=== PATIENT | male | born 1990 | race Caucasian/White ===

== ENCOUNTER 2018-05-31 14:31 | Emergency (ER) | payer SELFPAY ==
[~2018-05-31] VITALS: Ht 175.3 cm; Wt 81.8 kg
[~2018-05-31 14:31] MED LIST: ALAVERT10 MG OR; AMOXICILLIN500 MG OR; AMOXICILLIN500 MG PO; CIPROFLOXACN500 MG PO; FLEXERIL OR; LORTAB 5 OR; LUBRICANT EYE D0.5 % OU; MEDDOSEPAK OR; NAPROSYN500 MG OR; NAPROSYN500 MG PO; NO HOME MEDS; PENICILLN VK500 MG PO; ULTRAM50 M1 OR; ULTRAM50 M1 PO; ULTRAM50 MG OR; ULTRAM50 MG PO; ZOFRAN ODT8 MG PO; ZOFRAN4 MG/TAB PO
[2018-05-31 15:33] LABS: IMMATURE GRANULOCYTES 0.3 % (0.0-5.0); MEAN CELL VOLUME 85.6 fL CALC (80.0-100.0); MEAN CORPUSCULAR HGB 30.7 pG CALC (26.0-32.0); MEAN CORPUSCULAR HGB CONC 35.8 g/L CALC (32.0-36.0); NEUT# 8.74 thou/uL (1.82-7.42); RED BLOOD COUNT 6.26 mill/uL (4.70-6.10); RED CELL DISTRI WIDTH 12.6 % (11.5-15.5)
[2018-05-31 15:36] LABS: HEMATOCRIT 53.6 % (39.0-50.0); HEMOGLOBIN 19.2 g/dl (14.0-18.0)
[2018-05-31 15:45] LABS: ALBUMIN 5.8 g/dL (3.2-5.0); BILIRUBIN, TOTAL 1.5 mg/dL (0.0-1.4); CREATININE 2.5 mg/dL (0.7-1.3); POTASSIUM 3.8 mmol/l (3.5-5.1); TOTAL PROTEIN 10.4 g/dL (6.3-8.2)
[2018-05-31 17:25] VITALS: BP 130/93
== END 2018-05-31 17:25 | disposition left against medical advice (07) | DRG 699 ==
LOC: ED 14:31 → ED-I 16:23 → ED 16:32 → MS2 16:33
PROVIDERS: Family Medicine
DX: N28.9 Disorder of kidney and ureter, unspecified (principal); M62.82 Rhabdomyolysis; E86.0 Dehydration; F17.210 Nicotine dependence, cigarettes, uncomplicated; Z91.19 Patient's noncompliance with other medical treatment and regimen; D72.829 Elevated white blood cell count, unspecified

== ENCOUNTER 2018-05-31 20:50 | Emergency (ER) | payer SELFPAY ==
[~2018-05-31] VITALS: Ht 175.3 cm; Wt 84.1 kg
[2018-05-31 21:37] LABS: HEMATOCRIT 47.8 % (39.0-50.0); IMMATURE GRANULOCYTES 0.1 % (0.0-5.0); MEAN CELL VOLUME 88.2 fL CALC (80.0-100.0); MEAN CORPUSCULAR HGB 30.8 pG CALC (26.0-32.0); MEAN CORPUSCULAR HGB CONC 34.9 g/L CALC (32.0-36.0); NEUT# 5.51 thou/uL (1.82-7.42); RED BLOOD COUNT 5.42 mill/uL (4.70-6.10); RED CELL DISTRI WIDTH 12.7 % (11.5-15.5)
[2018-05-31 21:38] LABS: HEMOGLOBIN 16.7 g/dl (14.0-18.0)
[2018-05-31 21:38] LABS: URINE BILIRUBIN - DIPSTICK NEGATIVE (NEGATIVE); URINE BLOOD DIPSTICK NEGATIVE (NEGATIVE); URINE COLOR YELLOW; URINE GLUCOSE - DIPSTICK NEGATIVE (NEGATIVE); URINE KETONE NEGATIVE (NEGATIVE); URINE LEUK ESTERASE NEGATIVE (NEGATIVE); URINE NITRITE - DIPSTICK NEGATIVE (Negative); URINE PH 5.5 (4.5-8.0); URINE PROTEIN - DIPSTICK 30 mg/dL (NEG-TRACE); URINE SPECIFIC GRAVITY >=1.030; URINE UROBILINOGEN - DIPSTICK 0.2 E.U./dL (0.2)
[2018-05-31 21:39] LABS: URINE CLARITY HAZY
[2018-05-31 21:48] LABS: URINE AMORPH SEDIMENT FEW hpf (NONE-FER); URINE HYALINE CAST FEW lpf (NONE-RARE); URINE MUCUS FEW hpf (NONE-FEW)
[2018-05-31 21:57] LABS: ALBUMIN 4.9 g/dL (3.2-5.0); ALKALINE PHOSPHATASE 49 u/l (38-126); BILIRUBIN, TOTAL 1.1 mg/dL (0.0-1.4); BUN 28 mg/dL (9-20); BUN/CREATININE RATIO 17 (12-20 (CALC)); CHLORIDE 106 mmol/l (95-108); CPK 510 u/l (52-200); CREATININE 1.6 mg/dL (0.7-1.3); GFR 52 ML/MIN (>=60 (CALC)); GFR FOR AFR.AMER. > 60 ML/MIN (>=60 (CALC)); POTASSIUM 3.8 mmol/l (3.5-5.1); SGOT/AST 21 u/l (17-59); SGPT/ALT 30 u/l (21-72); SODIUM 143 mmol/l (137-146)
[2018-05-31 21:58] LABS: ANION GAP 17 (6-22 (CALC)); CARBON DIOXIDE 24 mmol/l (22-30); TOTAL PROTEIN 8.1 g/dL (6.3-8.2)
[2018-05-31 22:22] VITALS: BP 134/87
== END 2018-05-31 22:23 | disposition home or self-care (01) | DRG 699 ==
LOC: ED 20:50
PROVIDERS: Family Medicine
DX: N28.9 Disorder of kidney and ureter, unspecified (principal); M62.82 Rhabdomyolysis; D72.829 Elevated white blood cell count, unspecified; F17.210 Nicotine dependence, cigarettes, uncomplicated

== ENCOUNTER 2022-04-19 20:25 | Emergency (ER) | payer SELFPAY ==
[~2022-04-19] VITALS: Ht 175.3 cm; Wt 100.0 kg
[2022-04-19 20:31] VITALS: BP 133/85
[2022-04-19 20:45] VITALS: BP 136/80
[2022-04-19 21:00] VITALS: BP 120/84
[2022-04-19 21:15] VITALS: BP 134/77
[2022-04-19 21:30] VITALS: BP 128/77
[2022-04-19 21:35] LABS: HEMATOCRIT 44.7 % (39.0-50.0); IMMATURE GRANULOCYTES 0.4 % (0.0-5.0); MEAN CELL VOLUME 90.5 fL CALC (80.0-100.0); MEAN CORPUSCULAR HGB 30.4 pG CALC (26.0-32.0); MEAN CORPUSCULAR HGB CONC 33.6 g/dL CAL (32.0-36.0); NEUT# 6.01 thou/uL (1.82-7.42); RED BLOOD COUNT 4.94 mill/uL (4.70-6.10); RED CELL DISTRI WIDTH 12.9 % (11.5-15.5)
[2022-04-19 21:41] LABS: ALBUMIN 4.4 g/dL (3.2-5.0); ALKALINE PHOSPHATASE 54 u/l (38-126); AMYLASE 68 u/l (30-110); ANION GAP 13 (6-22 (CALC)); BUN 15 mg/dL (9-20); BUN/CREATININE RATIO 14 (12-20 (CALC)); CARBON DIOXIDE 27 mmol/l (22-30); CHLORIDE 106 mmol/l (95-108); CREATININE 1.1 mg/dL (0.7-1.3); GFR FOR AFR.AMER. > 60 ML/MIN (>=60 (CALC)); GFR OTHER RACES > 60 ML/MIN (>=60 (CALC)); LIPASE 80 u/l (23-300); POTASSIUM 3.8 mmol/l (3.5-5.1); SGOT/AST 34 u/l (17-59); SODIUM 142 mmol/l (137-146); TOTAL PROTEIN 7.3 g/dL (6.3-8.2)
[2022-04-19 21:44] LABS: PROTHROMBIN TIME 10.2 SECONDS (9.0-12.5)
[2022-04-19 21:47] LABS: BILIRUBIN, TOTAL 0.4 mg/dL (0.0-1.4)
[2022-04-19] MEDS ORDERED: PREVACID30 M3 PO (22:59)
[2022-04-19 23:16] VITALS: BP 128/77
== END 2022-04-19 23:25 | disposition home or self-care (01) | DRG 605 ==
LOC: ED 20:25
PROVIDERS: Emergency Medicine
DX: S30.817A Abrasion of anus, initial encounter (principal); R19.7 Diarrhea, unspecified; F17.210 Nicotine dependence, cigarettes, uncomplicated; X58.XXXA Exposure to other specified factors, initial encounter; Z20.822 Contact with and (suspected) exposure to COVID-19
CPT/HCPCS: Q9967; S0164